=== PATIENT | female | born 1980 | race Caucasian/White ===

== ENCOUNTER 2017-10-02 06:50 | Day surgery (SDC) | payer OTHER ==
[~2017-10-02] VITALS: Ht 162.6 cm; Wt 90.7 kg
--- NOTE | ~2017-10-02 | OR ---
[facility] [address], [place] [address] Draft DATE OF OPERATION: 10/02/2017 SURGEON: Mason Wright MD PREOPERATIVE DIAGNOSES: Dysmenorrhea and deep dyspareunia. POSTOPERATIVE DIAGNOSES: Dysmenorrhea, deep dyspareunia and abdominal adhesions. PROCEDURE: Laparoscopy with lysis of adhesions. ANESTHESIA: General ET. ESTIMATED BLOOD LOSS: Minimal. DRAINS: None. INDICATIONS AND FINDINGS: The patient is a 37-year-old female, G2, P2, who is being admitted for further evaluation of continued deep dyspareunia. She also has a history of severe dysmenorrhea, that has been well controlled on control pills. The patient had initially been scheduled for laparoscopy prior to her last , but was found to be at that preop visit. As her symptoms have not resolved, the decision was made to proceed with evaluation to see if she did have some endometriosis present. She has had two prior sections. At the time of surgery, exam under anesthesia was normal. At the time of laparoscopy, there were adhesions of the omentum to the anterior abdominal wall. There were also adhesions of the bladder to the anterior cervix. There was a single area consistent with burned-out endometriosis and scarring on the left posterior broad ligament overlying plexus of vessels. The tubes and ovaries otherwise appeared normal. There was no endometriosis in the ovarian fossae bilaterally as well. DESCRIPTION OF PROCEDURE: The patient was prepped and draped in the dorsal lithotomy position. A weighted speculum was placed and the anterior lip of the cervix was visualized and grasped with a single-tooth tenaculum. The uterus sounded to 9 cm. The Hulka clamp was then placed PATIENT NAME: СЕРГЕЙ TELLEZ OPERATIVE REPORT DATE OF : 84 REPORT #: [id number] PHYSICIAN: MASON WRIGHT MD PCP: NO PRIMARY CARE PHYSICIAN REPORT IS CONFIDENTIAL AND NOT TO BE RELEASED WITHOUT AUTHORIZATION [facility] [address], [place] [address] Draft and the tenaculum and speculum removed. Attention was directed above. The infraumbilical area was injected with 0.5% Marcaine plain and an incision was made with a knife. Each layer was then serially elevated and incised until the fascia was opened and identified and stay sutures of 0 Vicryl placed. The peritoneum was opened bluntly. The Spencer cannula was then placed and the balloon inflated. Placing the scope confirmed proper positioning. CO2 was then introduced into the abdomen and the pelvis was visualized. A 2nd port was made slightly below the umbilical line on the far left. The slight area was transilluminated, injected with the Marcaine, incision made with a knife and the trocar was placed under direct vision. This was a 5 mm port. The adhesions of the omentum to the anterior abdominal wall were then incised using the LigaSure [place] device. The pelvis was then thoroughly evaluated with the above findings. It was not felt to be safe to remove the area of scarring as the did overlie the vessels on the patient's left side, this was left in place. Following this, the procedure was terminated. The instruments were removed from the abdomen after allowing as much CO2 as possible to escape. The fascia at the umbilicus was reidentified and closed with a running suture of 0 Vicryl. The skin incisions were closed with subcuticular sutures of 3-0 Vicryl Rapide. The vaginal instruments removed and the cervix visualized. There was no evidence of any ongoing bleeding. The procedure was terminated. The patient was taken to the recovery room in good condition. Mason Wright MD PJW/MODL /[id number] cc: Deep Maguire MD Copies: Deep MAGUIRE MD ~ PATIENT NAME: СЕРГЕЙ TELLEZ OPERATIVE REPORT DATE OF : 84 REPORT #: [id number] PHYSICIAN: MASON WRIGHT MD PCP: NO PRIMARY CARE PHYSICIAN REPORT IS CONFIDENTIAL AND NOT TO BE RELEASED WITHOUT AUTHORIZATION
[~2017-10-02 06:50] MED LIST: ACETAMINOPHEN325 M1 PO; CALCIUM 500 +1 EAC1 PO; FLINTSTONES CO1 EAC1 PO; IBUPROFEN400 MG PO; LEXAPRO20 MG PO; PROMETHAZINE HC25 M1 PO; ROBAFEN-DM SYR118 ML PO; WELLBUTRIN SR150 MG PO; YAZ 28 TABLET1 EACH PO; ZANTAC150 MG PO; ZYRTEC10 MG PO
--- NOTE | 2017-10-02 11:00 | NUR ---
10/02/17 1100 Roseann Love 1053 PT ARRIVED IN PACU SLEEPY ON RA. NO C/O'S PAIN.
[2017-10-02] MEDS ORDERED: MOTRIN IB200 MG PO (12:15)
[2017-10-02] MEDS ORDERED: PERCOCET 5-3251 EACH PO (12:15)
--- NOTE | 2017-10-02 12:27 | NUR ---
DC INSTRUCTIONS GIVEN IN PRESENCE OF FRIEND AND BOTH VERBALIZE UNDERSTANDING. PT DRESSING SELF IN PRESENCE OF FRIEND AND TOLERATES THAT WELL.
--- NOTE | 2017-10-02 14:10 | NUR ---
PT IS ALERT, ORIENTED AND SUPPORTED BY A FRIEND. SHE SEEMED INFORMED, HAD FEW QUESTIONS AND REQUESTED PRAYER. WILL CONTINUE TO FOLLOW NEEDED
== END 2017-10-02 12:40 | disposition home or self-care (01) ==
LOC: DS 06:50
PROVIDERS: Obstetrics & Gynecology
PROC: 0DNU4ZZ Release Omentum, Percutaneous Endoscopic Approach (ICD-10-PCS; principal; 2017-10-02 08:45)
DX: N94.12 Deep dyspareunia (principal); N94.6 Dysmenorrhea, unspecified; K66.0 Peritoneal adhesions (postprocedural) (postinfection); N32.89 Other specified disorders of bladder; K21.9 Gastro-esophageal reflux disease without esophagitis; E66.9 Obesity, unspecified; Z30.41 Encounter for surveillance of contraceptive pills; Z79.899 Other long term (current) drug therapy; Z86.32 Personal history of gestational diabetes; Z68.34 Body mass index [BMI] 34.0-34.9, adult; Z88.2 Allergy status to sulfonamides
CPT/HCPCS: 00840; J0131; J1100; J1885; J2250; J2405; J2704; J2765; J3475; J7120

== ENCOUNTER 2017-10-29 18:57 | Emergency (ER) | payer OTHER ==
[~2017-10-29] VITALS: Ht 162.6 cm; Wt 90.7 kg
[~2017-10-29 18:57] MED LIST changes: +MOTRIN IB200 MG PO; +PERCOCET 5-3251 EACH PO
== END 2017-10-29 20:17 | disposition home or self-care (01) ==
LOC: ED 18:57
PROC: 0HQGXZZ Repair Left Hand Skin, External Approach (ICD-10-PCS; principal; 2017-10-29)
DX: S61.012A Laceration without foreign body of left thumb without damage to nail, initial encounter (principal); Z88.2 Allergy status to sulfonamides; Z88.8 Allergy status to other drugs, medicaments and biological substances; Z79.899 Other long term (current) drug therapy; W26.0XXA Contact with knife, initial encounter
CPT/HCPCS: 12001; 99282